=== PATIENT | female | born 1975 | race Caucasian/White ===

== ENCOUNTER 2020-11-26 15:42 | Emergency (ER) | payer OTHER ==
[~2020-11-26] VITALS: Ht 152.4 cm; Wt 65.8 kg
[2020-11-26] MEDS ORDERED: COZAAR25 MG PO (16:30)
== END 2020-11-26 18:08 | disposition home or self-care (01) ==
LOC: ER 15:42
DX: G44.89 Other headache syndrome (principal); R53.81 Other malaise

== ENCOUNTER 2022-06-10 16:27 | Emergency (ER) | payer OTHER ==
[~2022-06-10] VITALS: Ht 167.6 cm; Wt 70.8 kg
[~2022-06-10 16:27] MED LIST: COZAAR25 MG PO
== END 2022-06-10 22:25 | disposition home or self-care (01) ==
LOC: ER 16:27
DX: R07.89 Other chest pain (principal); I10 Essential (primary) hypertension; F41.9 Anxiety disorder, unspecified; M54.9 Dorsalgia, unspecified

== ENCOUNTER 2022-07-29 08:24 | Outpatient (CLI) | payer OTHER | END 2022-07-29 08:32 | disposition home or self-care (01) | LOC: LAB 08:24 | PROVIDERS: ATTEND Internal Medicine Hematology & Oncology | DX: D50.8 Other iron deficiency anemias (principal); R79.9 Abnormal finding of blood chemistry, unspecified; I10 Essential (primary) hypertension; R74.02 Elevation of levels of lactic acid dehydrogenase [LDH]; K76.89 Other specified diseases of liver; I67.89 Other cerebrovascular disease; Z86.73 Personal history of transient ischemic attack (TIA), and cerebral infarction without residual deficits; E78.2 Mixed hyperlipidemia; D68.312 Antiphospholipid antibody with hemorrhagic disorder ==